=== PATIENT | female | born 1940 | race Caucasian/White ===

== ENCOUNTER → 2016-11-11 | Outpatient (CLI) | payer MEDICARE ==
[~2016-11-11] MED LIST: FENTANYL PF 100 MCG/2ML ONE; FLUMAZENIL 0.1 MG/1 ML, 5ML ONE; GADOBUTROL 10 MMOL/10 ML PFS ONE; MIDAZOLAM 1 MG/ML, 5ML ONE; NALOXONE 1 MG/ML, 2ML ONE
== END | disposition home or self-care (01) ==
LOC: RAD 11-08 13:01
PROVIDERS: ATTEND Psychiatry & Neurology Neurology
DX: H49.23 Sixth [abducent] nerve palsy, bilateral (principal); H53.2 Diplopia
CPT/HCPCS: A9585; J2250; J3010; J2310

== ENCOUNTER 2019-08-14 07:48 | Emergency (ER) | payer MEDICARE ==
[~2019-08-14] VITALS: Ht 157.5 cm; Wt 90.9 kg
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
[2019-08-14] MEDS ORDERED: CYCLOBENZAPRINE 10 MG TABLET ONE (08:14)
[2019-08-14] MEDS ORDERED: IBUPROFEN 600 MG TABLET ONE (08:14)
--- NOTE | 2019-08-14 08:18 | NUR ---
PT TO IMAGING
--- NOTE | 2019-08-14 08:30 | NUR ---
PT BACK IN ROOM, CALL VELASQUE[facility] PERKINS. SON AT BEDSIDE
[2019-08-14] MEDS ORDERED: CYCLOBENZAPRINE 10 MG TABLET PO ONE (09:00)
[2019-08-14] MEDS ORDERED: IBUPROFEN 600 MG TABLET PO ONE (09:00)
--- NOTE | 2019-08-14 09:47 | NUR ---
ASSISTED PATIENT TO BATHROOM. BACK RESTING IN BED. REPORT TO KRISTOFER BABCOCK
--- NOTE | 2019-08-14 09:54 | NUR ---
PT REPORT FROM SADIQ SCHOFIELD. PT CARE TO BE ASSUMED. PT AWAITING RECHECK FROM ERP.
[2019-08-14] MEDS ORDERED: METHOCARBAMOL 500 MG TABLET PO ONE (10:00)
[2019-08-14 10:15] VITALS: BP 161/64
[2019-08-14] MEDS ORDERED: METHOCARBAMOL 500 MG TABLET ONE (10:18)
[2019-08-14] MEDS ORDERED: DIABETES (10:19)
[2019-08-14] MEDS ORDERED: CHOLESTEROL (14:47)
[2019-08-14] MEDS ORDERED: HTN (14:47)
[2019-08-14] MEDS ORDERED: THYROID (14:47)
[2019-08-14] MEDS ORDERED: METFORMIN (14:47)
== END 2019-08-14 10:22 | disposition home or self-care (01) ==
LOC: ED 08:52
DX: S23.3XXA Sprain of ligaments of thoracic spine, initial encounter (principal); I10 Essential (primary) hypertension; E11.9 Type 2 diabetes mellitus without complications; W19.XXXA Unspecified fall, initial encounter; Y93.89 Activity, other specified; Y92.89 Other specified places as the place of occurrence of the external cause; Y99.8 Other external cause status
CPT/HCPCS: 71046; 72072; 99284

== ENCOUNTER → 2020-06-28 | Outpatient (CLI) | payer MEDICARE ==
[~2020-06-28] MED LIST changes: +CHOLESTEROL; +DIABETES; -FENTANYL PF 100 MCG/2ML ONE; -FLUMAZENIL 0.1 MG/1 ML, 5ML ONE; -GADOBUTROL 10 MMOL/10 ML PFS ONE; +HTN; +METFORMIN; -MIDAZOLAM 1 MG/ML, 5ML ONE; -NALOXONE 1 MG/ML, 2ML ONE; +THYROID
== END | disposition home or self-care (01) ==
LOC: RAD 09:25
PROVIDERS: ATTEND Family Medicine
DX: M19.011 Primary osteoarthritis, right shoulder (principal); M75.121 Complete rotator cuff tear or rupture of right shoulder, not specified as traumatic; M62.511 Muscle wasting and atrophy, not elsewhere classified, right shoulder; M25.411 Effusion, right shoulder; M25.811 Other specified joint disorders, right shoulder